=== PATIENT | female | born 1995 | race Caucasian/White ===

== ENCOUNTER 2016-09-11 20:32 | Emergency (ER) | payer OTHER ==
[2016-09-11 20:38] VITALS: BP 135/78
[2016-09-11] MEDS ORDERED: Al Hydrox/Mg Hydrox/Simet LIQ* 30 ML UDC PO ONE (20:54)
[2016-09-11] MEDS ORDERED: Ondansetron ODT TAB* 4 MG SL ONE (21:30)
[2016-09-11] MEDS ORDERED: Omeprazole CAP* 20 MG PO ONE (21:30)
[2016-09-11] MEDS ORDERED: Ondansetron TAB* 4 MG PO ONE (21:31)
[2016-09-11] MEDS ORDERED: Ondansetron ODT TAB* 4 MG ONE (21:36)
--- NOTE | 2016-09-11 21:36 | UC ---
Christiano Cobos SooYoung, scribed for Dom Estevez MD on 09/11/16 at 2049 . Abdominal Pain Female HPI - HPI Summary HPI Summary: A 20 y/o F presents to E with abd pain onset four days ago. Associated sx: nausea; frequent soft BMs but not diarrhea; intermittent hot flashes. Denies melena, dysuria, vaginal discharge, recent stress or anxiety. No abd PMHx or SHX. [facility]: 4-5 days ago. 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 - History of Current Complaint Chief Complaint: UCGI Stated Complaint: NAUSEA,STOMACH PAIN Time Seen by Provider: 09/11/16 20:41 Hx Obtained From: Patient, Family/Vat Washer Hx Last Menstrual Period: 09/07/16 Onset/Duration: Gradual Onset, Lasting Days - about 4 days ago, Still Present Timing: Constant Severity Initially: Moderate Severity Currently: Moderate Pain Intensity: 4 Pain Scale Used: 0-10 Numeric Character: Aching Aggravating Factor(s): Food Associated Signs and Symptoms: Positive: Nausea, Other: - pos: frequent soft BM ; hot flashes Allergies/Adverse Reactions: Allergies Allergy/AdvReac Type Severity Reaction Status Date / Time No Known Allergies Allergy Verified 04/28/12 06:47 Home Medications: Home Medications Calcium Carbonate (Antacid) [Tums] 500 mg PO 09/11/16 [History] Norgestimate-Ethinyl Estradiol [Trinessa 0.18/0.215/0.25 mg-35 Mcg] 1 tab PO 09/21 [History] PMH/Surg Hx/FS Hx/Imm Hx Previously Healthy: Yes Psychological History: Anxiety - Surgical History Surgical History: Yes Surgery Procedure, Year, and Place: ORAL SURGERY IN [facility] 2009 2007 - Family History Known Family History: Positive: Other Family History: neg family anaesthesia reaction - Social History Occupation: Unemployed - OTHER Lives: With Family Alcohol Use: None Substance Use Type: None Smoking Status (MU): Never Smoked Tobacco Review of Systems Constitutional: Other - hot flashes Gastrointestinal: Abdominal Pain, Nausea, Other - frequent BMs Genitourinary: Other - neg: dysuria, melena, vaginal discharge Psychological: Other - neg: stress/anxiety All Other Systems Reviewed And Are Negative: Yes Physical Exam Triage Information Reviewed: Yes Appearance: Well-Appearing, No Pain Distress Vital Signs: Initial Vital Signs Temp 98.1 F 09/11/16 20:34 Pulse 89 09/11/16 20:34 Resp 18 09/11/16 20:34 BP 135/78 09/11/16 20:34 Pulse Ox 100 09/11/16 20:34 Vital Signs Reviewed: Yes Eye Exam: Normal - EOMI, KULDIP ENT: Positive: Normal ENT inspection Neck: Positive: Supple, Nontender Respiratory: Positive: Lungs clear, Normal breath sounds Cardiovascular: Positive: RRR Abdomen Description: Positive: Soft, Other: - mild epigastric tenderness, rest of abd is nontender Bowel Sounds: Positive: Present Musculoskeletal Exam: Normal Musculoskeletal: Positive: Strength Intact Neurological Exam: Normal - A&Ox3; sensory/motor intact Psychological Exam: Normal - mood/affect appropriate Skin Exam: Normal - warm, dry, color reflects adequate perfusion Re-Evaluation - Re-Evaluation 1 Re-Evaluation Time: 21:30 Change: Worse Comment: Checking on pt, feeling worse after Maalox. Abd Pain Female Course/Dx - Course Course Of Treatment: Pt medications reviewed this visit. Pre-Hypertensive BP reading (135/78); patient referred to PCP for follow-up. - Differential Dx/Diagnosis Provider Diagnoses: EPIGASTRIC/ABDOMINAL PAIN, NAUSEA AND CHEST PAIN Discharge - Discharge Plan Condition: Stable Disposition: HOME Prescriptions: Omeprazole CAP* [Prilosec CAP* 20 MG] 20 mg PO BID #30 cap. Ondansetron ODT TAB* [Zofran 4 MG Odt TAB*] 4 mg PO Q6H PRN #10 tab.odt PRN Reason: Nausea Patient Education Materials: Chest Pain (ED), Acute Abdominal Pain (ED) Referrals: No Primary Care Phys,NOPCP [Medical Doctor] - [facility] [Outside] Additional Instructions: Your blood pressure reading today was 135/78, which is PRE-HYPERTENSIVE. Establish with a new primary care provider and follow-up within 4 weeks for blood pressure readings and further evaluation. If you can't find a provider, try to check your blood pressure on your own and see if its above 120/80. If so , follow up for further evaluation and treatment. FOLLOW UP WITH YOUR DOCTOR. GO TO THE EMERGENCY DEPARTMENT FOR ANY WORSENING OF YOUR CONDITION; PAIN, SHORTNESS OF BREATH, YOU FEEL ILL, FEVER OR QUESTIONS OR CONCERNS. The documentation as recorded by the Christiano capone SooYoung accurately reflects the service I personally performed and the decisions made by me, Dom Estevez MD.
== END 2016-09-11 21:45 | disposition home or self-care (01) ==
LOC: UCEAST 20:32
DX: R10.13 Epigastric pain (principal); R11.0 Nausea; R07.9 Chest pain, unspecified; R03.0 Elevated blood-pressure reading, without diagnosis of hypertension
CPT/HCPCS: 99213; A9270-GY; G0463

== ENCOUNTER 2017-10-29 10:13 | Emergency (ER) | payer OTHER ==
--- OUTSIDE RECORDS SUMMARY | 2017-10-29 10:19 | XMS REPORT ---
:1995 External Reference #:[id number] Author Organization [facility] Address [address] [place] [address] [place] [address] Phone [phone] Care Team Providers Name Role Phone Luisa Sargent Primary Care Physician Unavailable Payers Type Date Identification Numbers Payment Provider Subscriber Commercial Effective: Policy Number: [id number] [facility] // [facility] Network Jayme Sandeep 2014 PayID: [id number] [address] [place] [address] Problems Description No Active Problems Family History Date Family Member(s) Problem(s) Comments Father Hypercholesterolemia genetic related First Sister Asthma First Sister Seasonal Allergies Grandmother GI issues Paternal Grandfather Hypercholesterolemia Onset: (age 70 Years) Paternal Grandfather [place] Paternal Grandmother Unremarkable Maternal Grandfather Diabetes Maternal Grandfather [place] Maternal Grandmother Hypertension Social History Type Date Description Comments Lives With Younger Sister Lives With Mother And Father Smoke-Free Home is smoke-free Pets 1 dog Smoking Patient has never smoked Allergies, Adverse Reactions, Alerts Date Description Reaction Status Severity Comments 10/18/2017 Bactrim skin rash active 03/24/2010 NKDA inactive Medications Medication Date Status Form Strength Qnty SIG Indications Ordering Provider Tri-Sprintec 04/28/ Active Tablets 0.18/0.215 28tabs Take One N94.4 [place] 2014 /0.25 Tablet By Scar, mg-35 mcg Mouth D.O. Every Day Bactrim DS 10/08/ Hx Tablets 800-160mg 20tabs take 1 L03.115 Smita Mariscal 2018 - tab, po, Mario, 10/18/ bid, for C.P.N.P. 2018 10 days Clindamycin 10/06/ Hx Capsules 300mg take 1 L03.115 Smita Mariscal HCL 2017 - capsule, Mario, 10/06/ three C.P.N.P. 2018 times per day for 14 days Cephalexin 10/06/ Hx Capsules 500mg 20caps 2 capsule, L03.115 Smita Mariscal 2018 - by mouth, Mario, 10/08/ twice a C.P.N.P. 2018 day for 14 days Cephalexin 10/04/ Hx Tablets 500mg 20tabs 500 mg, L03.115 Smita Mariscal 2017 - take 1 Mario, 10/06/ tablet, C.P.N.P. 2018 po, bid for 10 days. Omeprazole 09/11/ Hx Capsules DR 20mg 1 by mouth Unknown 2016 - every day 2017 Zofran Odt 09/11/ Hx Tablets 4mg 1 by mouth Unknown 2016 - Dispers q6 hours 09/09/ as needed 2018 for nausea and vomiting Cefdinir 05/21/ Hx Capsules 300mg 20caps 1 capsule R30.0 Lennox 2016 - by mouth Sharkness 05/31/ twice , C.P.N.P 2016 daily for 10 days Diflucan 10/18/ Hx Tablets 150mg 1tabs 1 tab po B37.3 Zachary 2015 - today Shrivasta 10/20/ Carlos schultz 2015 Zithromax 07/25/ Hx Tablets 250mg 6tabs take as 461.9 Zachary Td-Callum 2012 - directed Shrivasta 08/03/ Carlos schultz 2012 No Active 07/22/ Hx Unknown Medications 2012 - 2012 Zithromax 02/11/ Hx Tablets 250mg 6tabs z callum 466.0 Zachary 2011 - Shrivasta 02/20/ Carlos schultz 2012 Proair HFA 02/11/ Hx Aerosol 108(90Base 1units 2 puffs 4 466.0 Zachary 2012 - ) mcg/ac hrly as Shrivasta 07/22/ needed Carlos schultz 2012 Prednisone 02/11/ Hx Tablets 20mg 10tabs 1 tab po 466.0 Zachary 2012 - bid pc for Shrivasta 02/20/ 5 day Carlos schultz 2011 Cefdinir 05/30/ Hx Capsules 300mg 20caps 2 po once 461.9 [place] 2011 - daily x Scar, 06/09/ 10d D.O. 2011 Fluconazole 05/30/ Hx Tablets 150mg 2tabs 1 po x 1, 461.9 [place] 2010 - july repeat Scar, 10/03/ after 72 D.O. 2011 hours Drysol 03/24/ Hx Solution 20% 45unit apply to 705.21 Luisa 2011 - s affected Arie, 10/18/ area qod - C.P.N.P. 2011 roll on Physical Hx 3Month knee pain 719.46 Luisa Therapy 2010 - s dx: 719.46 [place], 10/03/ C.P.N.P. 2010 Diflucan 02/27/ Hx Tablets 150mg 1tabs 150 mg po Lennox 2010 - once Sharkness 02/28/ , C.P.N.P 2010 Augmentin 02/21/ Hx Suspension 400-57mg/5 200uni 2 461.9 Lennox 2009 - Rec ML ts teaspoons Sharkness 03/24/ twice , C.P.N.P 2010 daily for 10 days Albuterol 03/17/ Hx Aerosol 90mcg/Dose 2units 2 puffs Zachary Inhalation 2008 - q4h prn Brianivasta 09/24/ Carlos schultz 2009 Spacer Device 03/17/ Hx 1units Use as Zachary 2008 - Directed Shrivasta 03/26/ Carlos schultz 2007 Albuterol 03/14/ Hx Syrup 2mg/5 ML 2Weeks 1 teaspoon 466.0 Zachary 2008 - po q8 hr Shrivasta 03/23/ prn Carlos schultz 2007 Prelone 03/14/ Hx Syrup 15mg/5 ML QS 2 466.0 Zachary 2007 - teaspoon Shrivasta 03/23/ po bid pc Carlos schultz 2007 for 3 days, 2 tspn q am for next 2 days Zithromax 03/14/ Hx Suspension 200mg/5 ML QS 1 03/11 466.0 Zachary 2007 - teaspoon Shrivasta 03/23/ po q day Carlos schultz 2007 for 5 days Medications Administered in Office Medication Date Status Form Strength Qnty SIG Indications Ordering Provider TB Intradermal Administered Injection Nurses [place] Test 018 Office TB Intradermal Administered Injection Nurses [place] Test 018 Office TB Intradermal Administered Injection Nurses [place] Test 017 Office TB Intradermal Administered Injection Luisa Test 017 Arie, C.P.N.P. TB Intradermal Administered Injection Nurses [place] Test 015 Office TB Noemi Test Administered Injection Zachary 999 Carlos Schroeder Immunizations CPT Code Status Date Vaccine Lot # [id number] Given 03/26/2016 Meningococcal B Recombinant Protein And Outer [id number] Membrane [Bexsero] 75971 Given 12/07/2015 Flu Inj Quadrivalent .5ml Preserve Free [id number] 40780 Given 09/06/2015 Meningococcal A,C,Y,W135 (Menactra) Preservative [id number] Free 65719 Given 09/06/2015 Meningococcal B Recombinant Protein And Outer [id number] Membrane [Bexsero] 94967 Given 06/22/2014 HPV 4 Gardasil 4 [id number] 90281 Given 02/21/2014 HPV 4 Gardasil 4 [id number] 38484 Given 12/20/2013 Flu Inj Quadrivalent .5ml Preserve Free [id number] 72831 Given 12/20/2013 HPV 4 Gardasil 4 [id number] 36268 Given 01/20/2013 Flu Inj Quadrivalent .5ml Preserve Free [id number] 61247 Given 02/04/2012 Flu Vacc Preserv Free Trivalent 3+yrs [id number] 05769 Given 01/28/2011 Flu Vacc Preserv Free Trivalent 3+yrs [id number] 42462 Given 09/24/2008 Varicella (Chicken Pox) Immunization [id number] 54856 Given 09/24/2008 TdaP Immunization Age 7+ [id number] 83339 Given 10/30/2004 MMR Virus Immunization 82601 Given 04/19/2002 DTaP Immunization under age 7 55805 Given 09/13/2001 Poliomyelitis Immunization 27271 Given 07/18/1998 Varicella (Chicken Pox) Immunization 63485 Given 07/18/1998 Hepatitis B Imm Age 0 to 19yr 76239 Given 05/23/1998 DTaP & Hib Immunization 92723 Given 01/04/1998 Poliomyelitis Immunization 34068 Given 01/04/1998 MMR Virus Immunization 40884 Given 08/21/1997 Hib/Hep B Combination Vaccine 94285 Given 08/21/1997 DTaP Immunization under age 7 32316 Given 06/27/1997 Hib Immunization 33978 Given 06/27/1997 Poliomyelitis Immunization 84445 Given 06/27/1997 DTaP Immunization under age 7 14029 Given 04/20/1997 Poliomyelitis Immunization 74119 Given 04/20/1997 DTaP Immunization under age 7 75358 Given 04/20/1997 Hib Vaccine 24594 Given 1996 Hepatitis B Imm Age 0 to 19yr 48695 Refused 10/24/2012 Hepatitis A Vaccine Pediatric/Adolescent 2 Dose Schedule 20665 Refused 10/24/2012 HPV 4 Gardasil 4 63628 Refused 10/24/2012 Meningococcal A,C,Y,W135 (Menactra) Preservative Free Vital Signs Date Vital Result Comment 10/18/2017 Weight 138.81 lb Weight in kg's 62.965 Body Temperature 97.8 F 10/08/2017 Weight 138.00 lb Weight in kg's 62.597 Body Temperature 97.7 F 10/06/2017 Weight 137.62 lb Weight in kg's 62.427 Body Temperature 98.8 F 10/04/2017 Weight 140.00 lb Weight in kg's 63.504 Body Temperature 98.2 F Heart Rate 88 /min BP Systolic 118 mmHg BP Diastolic 70 mmHg 09/09/2017 Height 62.75 inches 5'2.75" Weight 137.00 lb Weight in kg's 62.143 Heart Rate 73 /min BP Systolic 111 mmHg BP Diastolic 72 mmHg BMI (Body Mass Index) 24.5 kg/m2 09/14/2016 Weight 151.00 lb Weight in kg's 68.494 Body Temperature 98.7 F Heart Rate 70 /min BP Systolic 114 mmHg BP Diastolic 62 mmHg 08/07/2016 Height 63.5 inches 5'3.50" Weight 151.19 lb Weight in kg's 68.579 Heart Rate 79 /min BP Systolic 126 mmHg BP Diastolic 74 mmHg BMI (Body Mass Index) 26.4 kg/m2 Body Mass Index Percentile 85 % Right ear audiology results 20 db Left ear audiology results 20 db Left Visual Acuity Distance 20/20 Right Visual Acuity Distance 20/20 05/21/2016 Weight 145.00 lb Weight in kg's 65.772 Body Temperature 97.7 F 12/07/2015 Weight 137.00 lb Weight in kg's 62.143 Weight Percentile 68th Body Temperature 98.2 F 10/19/2015 Weight 138.00 lb Weight in kg's 62.597 Weight Percentile 70th Body Temperature 98.4 F 09/06/2015 Height 63.5 inches 5'3.50" Height Percentile 38 % Weight 137.00 lb Weight in kg's 62.143 Weight Percentile 69th Heart Rate 70 /min BP Systolic 123 mmHg BP Diastolic 72 mmHg Blood Pressure Percentile 88 % BMI (Body Mass Index) 23.9 kg/m2 Body Mass Index Percentile 74 % Right ear audiology results 20 db Left ear audiology results 20 db Left Visual Acuity Distance 20/20 Right Visual Acuity Distance 20/20 07/26/2015 Weight 142.00 lb Weight in kg's 64.411 Weight Percentile 76th Body Temperature 97.8 F 03/22/2015 Weight 146.00 lb Weight in kg's 66.226 Weight Percentile 81st Body Temperature 98.1 F Heart Rate 83 /min Blood Pressure Percentile 0 % BP Systolic Sitting 122 mmHg (L) 130/62 (R) BP Diastolic Sitting 62 mmHg (L) 130/62 (R) 09/13/2014 Height 63.25 inches 5'3.25" Height Percentile 36 % Weight 138.00 lb Weight in kg's 62.597 Weight Percentile 74th Heart Rate 86 /min BP Systolic 125 mmHg BP Diastolic 75 mmHg Blood Pressure Percentile 91 % BMI (Body Mass Index) 24.3 kg/m2 Body Mass Index Percentile 79 % 09/22/2013 Height 63 inches 5'3" Height Percentile 33 % Weight 131.25 lb Weight in kg's 59.535 Weight Percentile 68th Heart Rate 70 /min BP Systolic 120 mmHg BP Diastolic 67 mmHg Blood Pressure Percentile 80 % BMI (Body Mass Index) 23.2 kg/m2 Body Mass Index Percentile 75 % 04/28/2013 Height 63.25 inches 5'3.25" Height Percentile 37 % Weight 141.12 lb Weight in kg's 64.014 Weight Percentile 80th Heart Rate 70 /min BP Systolic 123 mmHg BP Diastolic 70 mmHg Blood Pressure Percentile 87 % BMI (Body Mass Index) 24.8 kg/m2 Body Mass Index Percentile 84 % 10/24/2012 Height 63.25 inches 5'3.25" Height Percentile 39 % Weight 140.00 lb Weight in kg's 63.504 Weight Percentile 81st Heart Rate 64 /min BP Systolic 110 mmHg BP Diastolic 64 mmHg Blood Pressure Percentile 47 % BMI (Body Mass Index) 24.6 kg/m2 Body Mass Index Percentile 85 % 07/25/2012 Weight 132.00 lb Weight in kg's 59.875 Weight Percentile 73rd Body Temperature 98.9 F Heart Rate 72 /min 02/18/2012 Weight 125.00 lb Weight in kg's 56.700 Weight Percentile 66th Body Temperature 98.2 F BP Systolic 124 mmHg BP Diastolic 62 mmHg Blood Pressure Percentile 0 % 02/12/2012 Weight 125.00 lb Weight in kg's 56.700 Weight Percentile 66th Body Temperature 97.9 F Blood Pressure Percentile 0 % 02/04/2012 Weight 126.50 lb Weight in kg's 57.380 Weight Percentile 69th Body Temperature 98.6 F Blood Pressure Percentile 0 % 10/19/2011 Height 63.25 inches 5'3.25" Height Percentile 44 % Weight 124.00 lb Weight in kg's 56.246 Weight Percentile 67th Heart Rate 72 /min BP Systolic 124 mmHg BP Diastolic 66 mmHg Blood Pressure Percentile 90 % BMI (Body Mass Index) 21.8 kg/m2 Body Mass Index Percentile 72 % 09/17/2011 Weight 134.00 lb Weight in kg's 60.782 Weight Percentile 80th Body Temperature 98.4 F Blood Pressure Percentile 0 % 10/03/2010 Height 62.75 inches 5'2.75" Height Percentile 48 % Weight 119.50 lb Weight in kg's 54.205 Weight Percentile 70th Heart Rate 68 /min BP Systolic 110 mmHg BP Diastolic 50 mmHg Blood Pressure Percentile 54 % BMI (Body Mass Index) 21.3 kg/m2 Body Mass Index Percentile 73 % 05/30/2010 Weight 110.00 lb Weight in kg's 49.896 Weight Percentile 60th Body Temperature 97.6 F Blood Pressure Percentile 0 % 05/19/2010 Weight 117.00 lb Weight in kg's 53.071 Weight Percentile 71st Body Temperature 97.8 F Blood Pressure Percentile 0 % 03/24/2010 Weight 118.00 lb Weight in kg's 53.525 Weight Percentile 74th Body Temperature 98.4 F Blood Pressure Percentile 0 % 02/21/2010 Weight 116.00 lb Weight in kg's 52.618 Weight Percentile 73rd Body Temperature 98.0 F Blood Pressure Percentile 0 % 10/01/2009 Height 61.5 inches 5'1.50" Height Percentile 52 % Weight 108.00 lb Weight in kg's 48.989 Weight Percentile 67th Heart Rate 72 /min BP Systolic 100 mmHg BP Diastolic 58 mmHg Blood Pressure Percentile 24 % BMI (Body Mass Index) 20.1 kg/m2 Body Mass Index Percentile 68 % 09/24/2008 Height 59.75 inches 4'11.75" Height Percentile 64 % Weight 102.00 lb Weight in kg's 46.267 Weight Percentile 75th Heart Rate 80 /min BP Systolic 100 mmHg BP Diastolic 60 mmHg Blood Pressure Percentile 27 % BMI (Body Mass Index) 20.1 kg/m2 Body Mass Index Percentile 78 % 10/31/2007 Height 56.75 inches 4'8.75" Height Percentile 57 % Weight 90.00 lb Weight in kg's 40.824 Weight Percentile 71st Heart Rate 80 /min BP Systolic 104 mmHg BP Diastolic 58 mmHg BMI (Body Mass Index) 19.6 kg/m2 Body Mass Index Percentile 81 % 07/28/2007 Weight 90.00 lb Weight in kg's 40.824 Weight Percentile 77th Body Temperature 97.8 F 05/23/2007 Weight 94.00 lb Weight in kg's 42.638 Weight Percentile 85th Body Temperature 97.2 F 03/16/2007 Weight 87.00 lb Weight in kg's 39.463 Weight Percentile 79th Body Temperature 95.7 F 03/14/2007 Weight 87.00 lb Weight in kg's 39.463 Weight Percentile 79th Body Temperature 96.8 F 09/02/2006 Height 53.5 inches 4'5.50" Height Percentile 48 % Weight 80.00 lb Weight in kg's 36.288 Weight Percentile 77th Heart Rate 72 /min BP Systolic 98 mmHg BP Diastolic 74 mmHg BMI (Body Mass Index) 19.6 kg/m2 Body Mass Index Percentile 89 % 10/30/2004 Height 48.5 inches 4'0.50" Height Percentile 29 % Weight 59.00 lb Weight in kg's 26.762 Weight Percentile 65th BMI (Body Mass Index) 17.6 kg/m2 Body Mass Index Percentile 84 % 10/01/2003 Height 46 inches 3'10" Height Percentile 31 % Weight 50.00 lb Weight in kg's 22.680 Weight Percentile 57th BMI (Body Mass Index) 16.6 kg/m2 Body Mass Index Percentile 77 % Results Test Date Test Result H/L Range Note CBC Auto Diff 09/16/2017 White Blood Count 5.9 10^3/uL 3.5-10.8 Red Blood Count 5.02 10^6/uL 4.00-5.40 Hemoglobin 14.2 g/dL 12.0-16.0 Hematocrit 42 % 35-47 Mean Corpuscular Volume 84 fL 80-97 Mean Corpuscular Hemoglobin 28 pg 27-31 Mean Corpuscular HGB Conc 34 g/dL 31-36 Red Cell Distribution Width 14 % 10.5-15 Platelet Count 231 10^3/uL 150-450 Mean Platelet Volume 9.5 um3 7.4-10.4 Abs Neutrophils 3.1 10^3/uL 1.5-7.7 Abs Lymphocytes 2.2 10^3/uL 1.0-4.8 Abs Monocytes 0.5 10^3/uL 0-0.8 Abs Eosinophils 0.1 10^3/uL 0-0.6 Abs Basophils 0.1 10^3/uL 0-0.2 Abs Nucleated RBC 0 10^3/uL Granulocyte % 52.8 % 38-83 Lymphocyte % 36.9 % 25-47 Monocyte % 8.0 % High 0-7 Eosinophil % 1.0 % 0-6 Basophil % 1.3 % 0-2 Nucleated Red Blood Cells % 0 Comp Metabolic Panel 09/16/2017 Sodium 139 mmol/L 135-145 Potassium 4.3 mmol/L 3.5-5.0 Chloride 105 mmol/L 101-111 Co2 Carbon Dioxide 26 mmol/L 22-32 Anion Gap 8 mmol/L 2-11 Glucose 87 mg/dL 70-100 Blood Urea Nitrogen 11 mg/dL 6-24 Creatinine 0.80 mg/dL 0.51-0.95 BUN/Creatinine Ratio 13.8 8-20 Calcium 9.5 mg/dL 8.6-10.3 Total Protein 6.9 g/dL 6.4-8.9 Albumin 4.2 g/dL 3.2-5.2 Globulin 2.7 g/dL 2-4 Albumin/Globulin Ratio 1.6 1-3 Total Bilirubin 0.40 mg/dL 0.2-1.0 Alkaline Phosphatase 55 U/L 34-104 Alt 11 U/L 7-52 Ast 13 U/L 13-39 Egfr Non- 91.4 >60 Egfr 110.7 >60 1 Laboratory test finding 09/16/2017 TSH (Thyroid Stim Horm) 3.33 mcIU/mL 0.34-5.60 2 Lipid Profile 09/16/2017 Triglycerides 151 mg/dL 3 (Trig/Chol/HDL) Cholesterol 216 mg/dL 4 HDL Cholesterol 62.9 mg/dL 5 LDL Cholesterol 123 mg/dL 6 GC/Chlamydia Amplified Rna 09/09/2017 Chlamydia trachomatis Rna Negative Negative Neisseria gonorrhoeae (GC) Rna Negative Negative Laboratory test finding 09/14/2016 Helico Pylori Antigen- Negative Negative 7, 8 Stool Stool Culture SEE RESULT BELOW 7, 9 Stool For Blood SEE RESULT BELOW 7, 10 Laboratory test finding 08/07/2016 .Hemoglobin in house 14.5 GC/Chlamydia Amplified 08/07/2016 Chlamydia trachomatis Rna Negative Negative 11 Rna Neisseria gonorrhoeae (GC) Rna Negative Negative 11 Laboratory test 05/22/2016 Urine Culture And SEE RESULT BELOW 12 finding Sensitivities Laboratory test 05/21/2016 .Urine Culture In House >100k positive finding Laboratory test 09/06/2015 .Hemoglobin in house 14.8 finding Laboratory test 09/13/2014 Hemoglobin 14.2 finding GC/Chlamydia 09/13/2014 Chlamydia trachomatis Negative Negative Amplified Rna Rna Neisseria gonorrhoeae (GC) Rna Negative Negative 13 Laboratory test finding 09/22/2013 .Hemoglobin in house 13.8 Laboratory test finding 07/25/2012 .Throat Culture Overnight neg .Throat Culture Quick Strep neg Laboratory test finding 04/28/2012 Urine Negative Negative 14 Laboratory test finding 10/19/2011 Hemoglobin 13.4 Laboratory test finding 10/03/2010 Hemoglobin 13.4 Laboratory test finding 05/19/2010 .Throat Culture Overnight neg .Throat Culture Quick Strep NEG Laboratory test finding 10/01/2009 .Hemoglobin in house 12.4 Laboratory test finding 09/24/2008 Hemoglobin 13.8 Laboratory test finding 07/28/2007 Throat Culture Quick Strep NEG Throat Culture (Overnight) neg per [facility] Laboratory test finding 05/24/2007 .Throat Culture Overnight neg .Throat Culture Quick Strep neg Laboratory test finding 09/02/2006 Hemoglobin 14.5 1 Because ethnic data is not always readily available, this report includes an eGFR for both -Americans and non- Americans. The National Kidney Disease Education Program (NKDEP) does not endorse the use of the MDRD equation for patients that are not between the ages of 18 and 70, are , have extremes of body size, muscle mass, or nutritional status, or are non- or non-. According to the National Kidney Foundation, irrespective of diagnosis, the stage of the disease is based on the level of kidney function: Stage Description GFR(mL/min/1.73 m(2)) 1 Kidney damage with normal or decreased GFR 90 2 Kidney damage with mild decrease in GFR 60-89 3 Moderate decrease in GFR 30-59 4 Severe decrease in GFR 15-29 5 Kidney failure <15 (or dialysis) 2 FASTING 3 Desirable: <150 Borderline High: 150-199 High: 200-499 Very High: >500 4 Desirable: <200 Borderline High: 200-239 High: >239 5 Low: <40 Desirable: 40-60 High: >60 6 Desirable: <100 Near Optimal: 100-129 Borderline High: 130-159 High: 160-189 Very High: >189 7 [id number] Test Performed by: [address] [id number] 9 SEE RESULT BELOW Name: LISA CARRASQUILLO : [address]: Lennox Tinoco [employer]DER Acct: [id number] Unit: [id number] AGE: 20 Location: [facility] Re09/14/16 SEX: F Status: REG REF SPEC: [id number] TYLER: 09/14/16-[address]: Lennox Tinoco [employer]DER REQ: [id number] RECD: 09/14/16 STATUS: RES _ SOURCE: STOOL SPDESC: ORDERED: Occult Bl, Diag, Stool Culture, Fecal Lactoferr, O P: Ez/Benton COMMENTS: [id number] Procedure Result Reported Site Stool Culture PENDING Stool Specimen Description Final 09/14/16- 1922 ML Stool Color Brown Stool Form Formed Stool Consistency Hard Shiga Toxin 1 2 PENDING Fecal Lactoferrin (Stool WBC) Final 09/14/16- 1922 ML Fecal Lactoferrin Negative by Immunoassay TEST LIMITATIONS: Assay detects elevated levels of lactoferrin released from fecal leukocytes as a marker of intestinal inflammation. The test may not be appropriate in immunocompromised persons. Fecal samples from breast fed infants should not be used with this assay. Stool Occult Blood (1) PENDING O P: Giardia/Cryptospor Screen PENDING * ML - MAIN LAB ([facility]) . END OF REPORT * ML=Testing performed at Main Lab DEPARTMENT OF PATHOLOGY, [address] [place] [address] Juliano Kinsey M.D. Director [facility] # [id number] 10 SEE RESULT BELOW Name: LISA CARRASQUILLO : [address]: Lennox Tinoco NP Acct: [id number] Unit: [id number] AGE: 20 Location: [facility] Re09/14/16 SEX: F Status: REG REF SPEC: [id number] TYLER: 09/14/16-1045 [facility] DR: Lennox Tinoco NP REQ: [id number] RECD: 09/14/16 STATUS: COMP _ SOURCE: STOOL SPDESC: ORDERED: Occult Bl, Diag, Stool Culture, Fecal Lactoferr, O P: Ez/Benton COMMENTS: [id number] Procedure Result Reported Site Stool Culture Final 09/16/16- 1424 ML Result No enteric pathogens isolated Testing for Salmonella, Shigella, Aeromonas, Plesiomonas, Yersinia and Campylobacter are included in a Stool Culture. Vibrio spp not routinely tested for in a stool culture. If testing is desired, please request specifically when placing test order. Sensitivities not routinely performed on stool isolates, as antibiotics may prolong the carriage rate of bacteria. Please contact the microbiology lab if sensitivities are required. Stool Specimen Description Final 09/14/16- 1923 ML Stool Color Brown Stool Form Formed Stool Consistency Hard Shiga Toxin 1 2 Final 09/15/16- 1045 ML Organism 1 Negative Shiga Toxin 1 2 CONTINUED ON NEXT PAGE * ML=Testing performed at Main Lab DEPARTMENT OF PATHOLOGY, [address] [place] [address] Juliano Kinsey M.D. Director [facility] # [id number] Patient: ILSA CARRASQUILLO [id number] (Continued) Specimen: [id number] Collected: 09/14/16 Received: 09/14/16 (Continued) Procedure Result Reported Site Shiga Toxin 1 2 Final (continued) 09/15/16- 1044 Immunochromatographic Assay Fecal Lactoferrin (Stool WBC) Final 09/14/16- 1923 ML Fecal Lactoferrin Negative by Immunoassay TEST LIMITATIONS: Assay detects elevated levels of lactoferrin released from fecal leukocytes as a marker of intestinal inflammation. The test may not be appropriate in immunocompromised persons. Fecal samples from breast fed infants should not be used with this assay. Stool Occult Blood (1) Final 09/15/16- 0806 ML Stool Occult Blood Negative O P: Giardia/Cryptospor Screen Final 09/15/16- 1046 ML Organism 1 Neg Cryptosporidium/Giardia Giardia and cryptosporidium antigen testing performed by enzyme immunoassay. If patient is immunocompromised or has traveled to or is from a developing country, a full ova and parasite exam with microscopic (OPMIC) is recommended. All samples will be held one month in case full ova and parasite testing is requested. Contact the Microbiology Department at [phone]. TEST LIMITATIONS: As with all diagnostic procedures, the results obtained should be used in conjunction with other clinical information available the physician, including confirmation by another method. Negative results can occur in samples containing antigen below lower limits of detection of the assay. One negative specimen does not rule out the possibility of a parasitic infection. To improve detection CONTINUED ON NEXT PAGE * ML=Testing performed at Main Lab DEPARTMENT OF PATHOLOGY, [address] [place] [address] Juliano Kinsey M.D. Director [facility] # [id number] Patient: LISA CARRASQUILLO [id number] (Continued) Specimen: [id number] Collected: 09/14/16-1044 Received: 09/14/16-1618 (Continued) Procedure Result Reported Site O P: Giardia/Cryptospor Screen Final (continued) 09/15/16- 1045 it is recommended that three specimens be collected on separate days over a period of not more than seven days. The use of colonic washes, aspirates or other diluted sample types has not been established and could affect the performance of the assay. Stool samples contaminated with an oily or particulate base (eg. Barium, mineral oil etc.) could interfere with the test and are not recommended. * ML - MAIN LAB ([facility]) . END OF REPORT * ML=Testing performed at Main Lab DEPARTMENT OF PATHOLOGY, [address] [place] [address] Juliano Kinsey M.D. Director [facility] # [id number] 11 [id number] 12 SEE RESULT BELOW Name: LISA CARRASQUILLO : [address]: Lennox Tinoco NP Acct: [id number] Unit: [id number] AGE: 20 Location: [facility] Re05/22/16 SEX: F Status: REG REF SPEC: [id number] TYLER: 05/22/16-755 [facility] DR: Lennox Tinoco NP REQ: [id number] RECD: 05/22/16 STATUS: COMP _ SOURCE: URINE SPDESC: ORDERED: Urine Culture COMMENTS: [id number] Urine Source: Random Procedure Result Reported Site Urine Culture Final 05/24/16- 0909 ML Organism 1 ESCHERICHIA COLI [place] Count >100,000 (Many) CFU/ML 1. ESCHERICHIA COLI [facility].I[facility]. RX --------- ------ Ampicillin >=32 R Cefazolin 16 I Cefepime <=1 S Ceftriaxone <=1 S Ciprofloxacin <=0.25 S Gentamicin <=1 S Levofloxacin <=0.12 S Meropenem <=0.25 S Nitrofurantoin <=16 S Tetracycline <=1 S Pipercillin/Tazobactam <=4 S Trimethoprim/Sulfamethoxazole <=20 S Amoxicillin/Clavulanic Acid 16 I Aztreonam <=1 S Contact the Microbiology Department for any additional antibiotic reporting. * ML - MAIN LAB ([facility]) . END OF REPORT * ML=Testing performed at Main Lab DEPARTMENT OF PATHOLOGY, [address] [place] [address] Juliano Kinsey M.D. Director [facility] # [id number] 13 Female urine specimens have been self-validated by [facility] and have been granted conditional assay approval by [facility]. 14 If is still suspected, please repeat test after 48 to 72 hours. This test detects intact HCG only and is indicated for the early detection of . Procedures Date CPT Code Description Status 10/06/2017 93778 I & D Abscess Simple Completed 10/31/2007 08462 Wart Treatment 1-14 warts Global Period 10 Days Completed Encounters Type Date Location Provider CPT E/M Dx Office Visit 10/08/2017 11:00a East Office Ken OcampoP.N.P. 39505 L03.115 Office Visit 10/06/2017 3:30p Main Office Ken OcampoP.N.P. 36677 L03.116 Office Visit 10/04/2017 4:15p Main Office eKn OcampoP.N.P. 43081 L03.116 Office Visit 09/09/2017 3:15p East Office Ken DeanP.N.P 24728 Z00.00 Office Visit 09/07/2017 10:00a East Office Nurses East Office 13459 Z11.1 Office Visit 09/01/2017 10:00a East Office Nurses East Office 81733 Z11.1 Office Visit 09/14/2016 9:15a East Office Ken DeanP.N.P 02422 R10.13 Office Visit 08/18/2016 10:15a East Office Nurses East Office 64145 Z11.1 Office Visit 08/07/2016 10:00a Main Office Luisa Sargent C.P.N.P. 88173 Z00.8 Z13.89 Office Visit 05/21/2016 4:30p East Office Lennox Tinoco C.P.N.P 66582 R30.0 Office Visit 12/07/2015 10:30a East Office Kush Pollard M.D. 13291 R59.0 Z23 R59.0 Office Visit 10/19/2015 10:00a Main Office Zachary Schroeder M.D. 47421 B37.3 Office Visit 09/06/2015 8:45a Main Office Luisa Sargent C.P.N.P. 14545 Z00.00 Z13.89 Office Visit 07/26/2015 4:15p Main Office Luisa Sargent C.P.N.P. 76899 R21 Office Visit 03/22/2015 4:00p Main Office Luisa Sargent C.P.N.P. 26384 I95.1 Office Visit 09/13/2014 10:00a East Office Lennox Tinoco C.P.N.P 81740 V20.2 625.3 Office Visit 09/22/2013 2:15p Main Office Luisa Sargent C.P.N.P. 33330 V20.2 625.3 Office Visit 04/28/2013 9:00a Main Office Luisa Sargent C.P.N.P. 00636 625.3 Office Visit 10/24/2012 2:15p Main Office Luisa Sargent C.P.N.P. 97315 V20.2 Office Visit 07/25/2012 5:00p East Office Zachary Schroeder M.D. 92102 461.9 Office Visit 02/18/2012 4:45p Main Office Zachary Schroeder M.D. 40256 466.0 780.79 Office Visit 02/12/2012 5:00p East Office Zachary Schroeder M.D. 42697 466.0 Office Visit 02/04/2012 4:30p East Office Cody Chisholm III, M.D. 47589 465.9 Office Visit 10/19/2011 9:45a Main Office Luisa Sargent C.P.N.P. 69346 V20.2 959.7 623.8 Office Visit 09/17/2011 11:45a East Office Cody Chisholm III, M.D. 48024 959.7 Office Visit 10/03/2010 10:15a Main Office Ken GarnerP.N.P. 66752 V20.2 626.4 Office Visit 05/30/2010 4:15p East Office Paris Abbott D.O. 38786 461.9 Office Visit 05/19/2010 4:45p Main Office Ken GranerP.N.P. 65056 487.1 Office Visit 03/24/2010 2:00p Main Office Ken GarnerP.N.P. 59584 705.21 719.46 Office Visit 02/21/2010 8:30a East Office Ken DeanP.N.P 36867 461.9 Office Visit 10/01/2009 2:15p Main Office Luisa Sargent C.P.N.P. 38595 V20.2 300.00 Office Visit 09/24/2008 11:00a East Office Daria Boss 19743 V20.2 625.3 300.00 Office Visit 10/31/2007 10:15a East Office Daria Boss 79042 V20.2 300.00 078.10 Office Visit 07/28/2007 1:45p East Office Cody Chisholm III, M.D. 39676 462 Office Visit 05/23/2007 4:30p East Office Daria Boss 69675 462 Office Visit 03/16/2007 1:00p East Office Zachary Schroeder M.D. 11405 466.0 Office Visit 03/14/2007 10:30a East Office Zachary Schroeder M.D. 50014 466.0 Office Visit 09/02/2006 11:00a East Office Hilton Boss.P.A.C. 98147 V20.2 300.00 Office Visit 02/24/2005 4:15p East Office Kush Pollard M.D. 44182 788.41 Office Visit 12/26/2004 3:45p East Office Yesica Ramirez R.P.A.C. 45791 599.0 V67.59 Office Visit 11/14/2004 4:00p East Office Yesica Ramirez R.P.A.C. 40054 788.1 V67.59 Office Visit 10/30/2004 12:30p East Office Hilton Boss.P.A.C. 35764 V20.2 V05.8 Office Visit 10/01/2003 10:00a East Office Yesica Ramirez R.P.A.C. 77755 V20.2 Office Visit 02/24/2002 9:30a East Office Yesica Ramirez R.P.A.C. 07088 382.9 Office Visit 02/09/2002 10:15a East Office Yesica Ramirez R.P.A.C. 95369 V20.2 382.9 599.0 V67.59 Office Visit 04/20/2001 2:15p East Office Rk Garner.P.N.P. 07870 Office Visit 10/29/2000 9:30a East Office Yesica Ramirez R.P.A.C. 51261 Plan of Care 10/18/2017 - Smita Martin C.P.N.P.L03.115 Cellulitis of right lower limbFollow up:PRN for new or worsening symptoms, and for routine well child check ups. She will be due for next [facility] at age 22 of next year and she knows to start thinking about transitioning to adult care and establishing a new PCP.L27.0 Gen skin eruption due to drugs and meds taken internallyComments: Evaluation of skin rash, discussed with patient to D/C Bactrim, appears to be related as she cannot identify any thing new in terms of foods, soaps or detergents that may have caused this to occur.Medicaiton allergy updated to Bactrim.Patient may take benadryl 25mg, take 1-2 tablet, po, qd PRN just asshe has when first noticed skin rash.She will continue to monitor, and if worseing then will call and RTO.
--- OUTSIDE RECORDS SUMMARY | 2017-10-29 10:19 | XMS REPORT ---
:1995 External Reference #:[id number] Author Organization [facility] Address [address] [place] [address] [place] [address] Phone [phone] Care Team Providers Name Role Phone Luisa Sargent Primary Care Physician Unavailable Payers Type Date Identification Numbers Payment Provider Subscriber Commercial Effective: Policy Number: [id number] [facility] // [facility] Network Jayme Sandeep 2014 PayID: [id number] [address] [place] [address] Problems Description No Active Problems Family History Date Family Member(s) Problem(s) Comments Father Hypercholesterolemia genetic related First Sister Asthma First Sister Seasonal Allergies Grandmother GI issues Paternal Grandfather Hypercholesterolemia Onset: (age 70 Years) Paternal Grandfather [place] Paternal Grandmother Unremarkable Maternal Grandfather Diabetes Maternal Grandfather [place] Maternal Grandmother Hypertension Social History Type Date Description Comments Lives With Younger Sister Lives With Mother And Father Smoke-Free Home is smoke-free Pets 1 dog Smoking Patient has never smoked Allergies, Adverse Reactions, Alerts Date Description Reaction Status Severity Comments 03/24/2010 NKDA active Medications Medication Date Status Form Strength Qnty SIG Indications Ordering Provider Bactrim DS 10/08/ Active Tablets 800-160mg 20tabs take 1 L03.115 Smita M. 2018 tab, po, Mario, bid, for C.P.N.P. 10 days Tri-Sprintec 04/28/ Active Tablets 0.18/0.215 28tabs Take One N94.4 Paris 2014 /0.25 Tablet By Scar, mg-35 mcg Mouth D.O. Every Day Clindamycin 10/06/ Hx Capsules 300mg take 1 L03.115 Smita M. HCL 2017 - capsule, Mario, 10/06/ three C.P.N.P. 2018 times per day for 14 days Cephalexin 10/06/ Hx Capsules 500mg 20caps 2 capsule, L03.115 Smita M. 2017 - by mouth, Mario, 10/08/ twice a C.P.N.P. 2018 day for 14 days Cephalexin 10/04/ Hx Tablets 500mg 20tabs 500 mg, L03.115 Smita M. 2017 - take 1 Mario, 10/06/ tablet, C.P.N.P. 2018 po, bid for 10 days. Omeprazole 09/11/ Hx Capsules DR 20mg 1 by mouth Unknown 2016 - every day 2017 Zofran Odt 09/11/ Hx Tablets 4mg 1 by mouth Unknown 2016 - Dispers q6 hours 09/09/ as needed 2017 for nausea and vomiting Cefdinir 05/21/ Hx Capsules 300mg 20caps 1 capsule R30.0 Lennox 2016 - by mouth Sharkness 05/31/ twice , C.P.N.P 2016 daily for 10 days Diflucan 10/18/ Hx Tablets 150mg 1tabs 1 tab po B37.3 Zachary 2015 - today Shrivastjonah 10/20/ Carlos schultz 2015 Zithromax 07/25/ Hx Tablets 250mg 6tabs take as 461.9 Zachary Z-Callum 2012 - directed Brianivastjonah 08/03/ Carlos schultz 2012 No Active 07/22/ Hx Unknown Medications 2012 - 2012 Zithromax 02/11/ Hx Tablets 250mg 6tabs z callum 466.0 Zachary 2011 - Shrivasta 02/20/ Carlos schultz 2011 Proair HFA 02/11/ Hx Aerosol 108(90Base 1units [...] - daily x Scar, 06/09/ 10d D.O. 2010 Fluconazole 05/30/ Hx Tablets 150mg 2tabs 1 po x 1, 461.9 Paris 2010 - july repeat Scar, 10/03/ after 72 D.O. 2011 hours Drysol 03/24/ Hx Solution 20% 45unit apply to 705.21 Luisa 2010 - s affected Arie, 10/18/ area qod - C.P.N.P. 2011 roll on Physical 03/24/ Hx 3Month knee pain 719.46 Luisa Therapy 2010 - s dx: 719.46 Arie, 10/03/ C.P.N.P. 2010 Diflucan 02/27/ Hx Tablets 150mg 1tabs 150 mg po Lennox 2009 - once Sharkness 02/28/ , C.P.N.P 2010 Augmentin 02/21/ Hx Suspension 400-57mg/5 200uni 2 461.9 Lennox 2009 - Rec ML ts teaspoons Sharkness 03/24/ twice , C.P.N.P 2010 daily for 10 days Albuterol 03/17/ Hx Aerosol 90mcg/Dose 2units 2 puffs Zachary Inhalation 2008 - q4h prn Shrivasta 09/24/ Carlos schultz 2009 Spacer Device 03/17/ Hx 1units Use as Zachary 2008 - Directed Shrivasta 03/26/ Carlos schultz 2007 Albuterol 03/14/ Hx Syrup 2mg/5 ML 2Weeks 1 teaspoon 466.0 Zachary 2008 - po q8 hr Shrivasta 03/23/ prn Carlos schultz 2007 Prelone 03/14/ Hx Syrup 15mg/5 ML QS 2 466.0 Zachary 2008 - teaspoon Shrivasta 03/23/ po bid pc Carlos schultz 2007 for 3 days, 2 tspn q am for next 2 days Zithromax 03/14/ Hx Suspension 200mg/5 ML QS 1 03/11 466.0 Zachary 2008 - teaspoon Shrivasta 03/23/ po q day Carlos schultz 2007 for 5 days Medications Administered in Office Medication Date Status Form Strength Qnty SIG Indications Ordering Provider TB Intradermal Administered Injection Nurses East Test 018 Office TB Intradermal Administered Injection Nurses East Test 018 Office TB Intradermal Administered Injection Nurses East Test 017 Office TB Intradermal Administered Injection Luisa Test 017 Arie C.P.N.P. TB Intradermal Administered Injection Nurses East Test 015 Office TB Noemi Test Administered Injection Zachary 999 Carlos Schroeder Immunizations CPT Code Status Date Vaccine Lot # 22971 Given 03/26/2016 Meningococcal B Recombinant Protein And Outer [id number] Membrane [Bexsero] 62521 Given 12/07/2015 Flu Inj Quadrivalent .5ml Preserve Free [id number] 61208 Given 09/06/2015 Meningococcal A,C,Y,W135 (Menactra) Preservative [id number] Free 73294 Given 09/06/2015 Meningococcal B Recombinant Protein And Outer 604359 Membrane [Bexsero] 82878 Given 06/22/2014 HPV 4 Gardasil 4 [id number] 49105 Given 02/21/2014 HPV 4 Gardasil 4 [id number] 27252 Given 12/20/2013 Flu Inj Quadrivalent .5ml Preserve Free [id number] 52497 Given 12/20/2013 HPV 4 Gardasil 4 [id number] 71842 Given 01/20/2013 Flu Inj Quadrivalent .5ml Preserve Free [id number] 43568 Given 02/04/2012 Flu Vacc Preserv Free Trivalent 3+yrs [id number] 38585 Given 01/28/2011 Flu Vacc Preserv Free Trivalent 3+yrs [id number] 83407 Given 09/24/2008 Varicella (Chicken Pox) Immunization 0355y 56920 Given 09/24/2008 TdaP Immunization Age 7+ [id number] 23229 Given 10/30/2004 MMR Virus Immunization 92870 Given 04/19/2002 DTaP Immunization under age 7 14595 Given 09/13/2001 Poliomyelitis Immunization 06613 Given 07/18/1998 Varicella (Chicken Pox) Immunization 19516 Given 07/18/1998 Hepatitis B Imm Age 0 to 19yr 83081 Given 05/23/1998 DTaP & Hib Immunization 60374 Given 01/04/1998 Poliomyelitis Immunization 39236 Given 01/04/1998 MMR Virus Immunization 34987 Given 08/21/1997 Hib/Hep B Combination Vaccine 45311 Given 08/21/1997 DTaP Immunization under age 7 07796 Given 06/27/1997 Hib Immunization 28131 Given 06/27/1997 Poliomyelitis Immunization 73373 Given 06/27/1997 DTaP Immunization under age 7 84801 Given 04/20/1997 Poliomyelitis Immunization 39109 Given 04/20/1997 DTaP Immunization under age 7 11669 Given 04/20/1997 Hib Vaccine 89689 Given 1996 Hepatitis B Imm Age 0 to 19yr 13973 Refused 10/24/2012 Hepatitis A Vaccine Pediatric/Adolescent 2 Dose Schedule 79244 Refused 10/24/2012 HPV 4 Gardasil 4 90825 Refused 10/24/2012 Meningococcal A,C,Y,W135 (Menactra) Preservative Free Vital Signs Date Vital Result Comment 10/08/2017 Weight 138.00 lb Weight in kg's [...] Strep NEG Throat Culture (Overnight) neg per [facility] test finding 05/24/2007 .Throat Culture Overnight [...] 130-159 High: 160-189 Very High: >189 7 [id number] Test Performed by: [address] [address] 9 SEE RESULT BELOW Name: LISA CARRASQUILLO : [address]: Lennox Tinoco INTERNATIONAL MARKETING COORDINATOR Acct: [id number] Unit: [id number] AGE: 20 Location: [facility] Re09/14/16 SEX: F Status: REG REF SPEC: [id number] TYLER: 09/14/[address]: Lennox Tinoco NP REQ: [id number] RECD: 09/14/16 STATUS: RES _ SOURCE: STOOL SPDESC: ORDERED: Occult Bl, Diag, Stool Culture, Fecal Lactoferr, O P: Faithar/Benton COMMENTS: [id number] Procedure Result Reported Site Stool Culture PENDING [...] Screen PENDING * ML - MAIN LAB ([facility]) . END OF REPORT * ML=Testing performed at Main Lab DEPARTMENT OF PATHOLOGY, [address] [place] [address] Juliano Kinsey M.D. Director [facility] # [id number] 10 SEE RESULT BELOW Name: LISA CARRASQUILLO : [address]: Lennox Tinoco INTERNATIONAL MARKETING COORDINATOR Acct: [id number] Unit: [id number] AGE: 20 Location: [facility] Re09/14/16 SEX: F Status: REG REF SPEC: [id number] TYLER: 09/14/16-[address]: Lennox Tinoco INTERNATIONAL MARKETING COORDINATOR REQ: [id number] RECD: 09/14/16 STATUS: COMP _ SOURCE: STOOL SPDESC: ORDERED: Occult Bl, Diag, Stool Culture, Fecal Lactoferr, O P: Giar/Crypt COMMENTS: [id number] Procedure Result Reported Site Stool Culture Final [...] performed at Main Lab DEPARTMENT OF PATHOLOGY, [address] [place] [address] Juliano Kinsey M.D. Director [facility] # [id number] Patient: LISA CARRASQUILLO [id number] (Continued) Specimen: [id number] Collected: 09/14/16 Received: 09/14/16 (Continued) Procedure Result [...] is requested. Contact the Microbiology Department at [phone]. TEST LIMITATIONS: As with all diagnostic procedures, [...] performed at Main Lab DEPARTMENT OF PATHOLOGY, [address] [place] [address] Juliano Kinsey M.D. Director [facility] # [id number] Patient: LISA CARRASQUILLO [id number] (Continued) Specimen: [id number] Collected: 09/14/16 Received: 09/14/16-1618 (Continued) Procedure Result Reported Site O P: Giardia/Cryptospor Screen Final (continued) 09/15/16- 6 it is recommended that three specimens be [...] not recommended. * ML - MAIN LAB ([facility]) . END OF REPORT * ML=Testing performed at Main Lab DEPARTMENT OF PATHOLOGY, [address] [place] [address] Juliano Kinsey M.D. Director [facility] # [id number] 12 SEE RESULT BELOW Name: LISA CARRASQUILLO : [address]: Lennox Tinoco NP Acct: [id number] Unit: [id number] AGE: 20 Location: [facility] Re05/22/16 SEX: F Status: REG REF SPEC: [id number] TYLER: 05/22/[address]: Lennox Tinoco NP REQ: [id number] RECD: 05/22/16 STATUS: COMP _ SOURCE: URINE SPDESC: ORDERED: Urine Culture COMMENTS: [id number] Urine Source: Random Procedure Result Reported Site Urine Culture Final 05/24/16- 0909 ML Organism 1 ESCHERICHIA COLI [place] Count >100,000 (Many) CFU/ML 1. ESCHERICHIA COLI [...] antibiotic reporting. * ML - MAIN LAB ([facility]) . END OF REPORT * ML=Testing performed at Main Lab DEPARTMENT OF PATHOLOGY, [address] [place] [address] Juliano Kinsey M.D. Director [facility] # [id number] 13 Female urine specimens have been self-validated by [facility] and have been granted conditional assay approval by [facility]. 14 If is still suspected, please repeat test after 48 to 72 hours. This test detects intact HCG only and is indicated for the early detection of . Procedures Date CPT Code Description Status 10/06/2017 35054 I & D Abscess Simple Completed 10/31/2007 04799 Wart Treatment 1-14 warts Global Period 10 Days Completed Encounters Type Date Location Provider CPT E/M Dx Office Visit 10/08/2017 11:00a East Office Smita Martin C.P.NJacobP. 41923 L03.115 Office Visit 10/06/2017 3:30p Main Office Smita Martin C.P.N.P. 47423 L03.116 Office Visit 10/04/2017 4:15p Main Office Smita Martin C.P.N.P. 54463 L03.116 Office Visit 09/09/2017 3:15p East Office Lennox Tinoco C.P.NJacobP 77537 Z00.00 Office Visit 09/07/2017 10:00a East Office Nurses East Office 41080 Z11.1 Office Visit 09/01/2017 10:00a East Office Nurses East Office 27042 Z11.1 Office Visit 09/14/2016 9:15a East Office Lennox Tinoco C.P.N.P 74989 R10.13 Office Visit 08/18/2016 10:15a East Office Nurses East Office 29833 Z11.1 Office Visit 08/07/2016 10:00a Main Office Ken GarnerP.N.P. 32133 Z00.8 Z13.89 Office Visit 05/21/2016 4:30p East Office Lennox Tinoco C.P.N.P 78182 R30.0 Office Visit 12/07/2015 10:30a East Office Kush Pollard M.D. 42005 R59.0 Z23 R59.0 Office Visit 10/19/2015 10:00a Main Office Zachary Schroeder M.D. 87866 B37.3 Office Visit 09/06/2015 8:45a Main Office Luisa Sargent C.P.N.P. 38055 Z00.00 Z13.89 Office Visit 07/26/2015 4:15p Main Office Ken GarnerP.N.P. 55485 R21 Office Visit 03/22/2015 4:00p Main Office Ken GarnerP.N.P. 82324 I95.1 Office Visit 09/13/2014 10:00a East Office Ken DeanP.N.P 68558 V20.2 625.3 Office Visit 09/22/2013 2:15p Main Office Luisa Sargent C.P.N.P. 13923 V20.2 625.3 Office Visit 04/28/2013 9:00a Main Office Ken GarnerP.N.P. 02940 625.3 Office Visit 10/24/2012 2:15p Main Office Ken GarnerP.N.P. 52599 V20.2 Office Visit 07/25/2012 5:00p East Office Zachary Schroeder M.D. 10281 461.9 Office Visit 02/18/2012 4:45p Main Office Zachary Schroeder M.D. 30787 466.0 780.79 Office Visit 02/12/2012 5:00p East Office Zachary Schroeder M.D. 67779 466.0 Office Visit 02/04/2012 4:30p East Office Cody Chisholm III, M.D. 93370 465.9 Office Visit 10/19/2011 9:45a Main Office Ken GarnerP.N.P. 88562 V20.2 959.7 623.8 Office Visit 09/17/2011 11:45a East Office Cody Chisholm III, M.D. 11557 959.7 Office Visit 10/03/2010 10:15a Main Office Ken GarnerP.N.P. 07640 V20.2 626.4 Office Visit 05/30/2010 4:15p East Office Paris Abbott D.O. 01978 461.9 Office Visit 05/19/2010 4:45p Main Office Ken GarnerP.N.P. 22778 487.1 Office Visit 03/24/2010 2:00p Main Office Rk Garner.P.N.P. 36892 705.21 719.46 Office Visit 02/21/2010 8:30a East Office Lennox Tinoco C.P.N.P 00705 461.9 Office Visit 10/01/2009 2:15p Main Office Rk Garner.P.N.P. 12567 V20.2 300.00 Office Visit 09/24/2008 11:00a East Office Yesica Ramirez R.P.A.CJacob 52144 V20.2 625.3 300.00 Office Visit 10/31/2007 10:15a East Office Yesica Ramirez R.P.A.C. 81002 V20.2 300.00 078.10 Office Visit 07/28/2007 1:45p East Office Cody Chisholm III, M.D. 00469 462 Office Visit 05/23/2007 4:30p East Office Yesica Ramirez R.P.A.CJacob 78707 462 Office Visit 03/16/2007 1:00p East Office Zachary Schroeder M.D. 00640 466.0 Office Visit 03/14/2007 10:30a East Office Zachary Schroeder M.D. 09303 466.0 Office Visit 09/02/2006 11:00a East Office Yesica Ramirez R.P.A.C. 21137 V20.2 300.00 Office Visit 02/24/2005 4:15p East Office Kush Pollard M.D. 08706 788.41 Office Visit 12/26/2004 3:45p East Office Yesica Ramirez R.P.A.C. 05876 599.0 V67.59 Office Visit 11/14/2004 4:00p East Office Yesica Ramirez R.P.A.C. 51530 788.1 V67.59 Office Visit 10/30/2004 12:30p East Office Yesica Ramirez R.P.A.C. 92985 V20.2 V05.8 Office Visit 10/01/2003 10:00a East Office Hilton Boss.P.A.C. 00995 V20.2 Office Visit 02/24/2002 9:30a East Office Hilton Boss.P.A.C. 85887 382.9 Office Visit 02/09/2002 10:15a East Office Yesica Ramirez R.P.A.C. 97339 V20.2 382.9 599.0 V67.59 Office Visit 04/20/2001 2:15p East Office Ken GarnerP.N.PJacob 20643 Office Visit 10/29/2000 9:30a East Office Shawna BossPJacobAJacobCJacob 08349 Plan of Care Future Appointment(s):10/18/2017 8:00 am - Ken OcampoP.N.P. at Main [id number]/08/2017 - Ken OcampoP.N.P.L03.115 Cellulitis of right lower limbNew Medication:Bactrim DS 800-160 mgComments:Patient to stop Cephalexin and take Bactrim DS.Continue with warm compress and soaks. Ibuprofen 400mg, 1-2 tab for pain q6-8 hours, prn.Continue to monitor. Call back if worsening or new symptoms develop.Follow up:10 days or PRNGoals:Reduce swelling, promote drainage and healing.
--- OUTSIDE RECORDS SUMMARY | 2017-10-29 10:20 | XMS REPORT ---
:1995 External Reference #:[id number] Author Organization [facility] Address [address] [place] [address] Phone [phone] Care Team Providers Name Role Phone Luisa Sargent Primary Care Physician Unavailable Payers Type Date Identification Numbers Payment Provider Subscriber Commercial Effective: Policy Number: [id number] [facility] // [facility] Network Jayme Sandeep 2014 PayID: [id number] [place] [address] Problems Description No Active Problems Family History Date Family Member(s) Problem(s) Comments Father Hypercholesterolemia genetic related First Sister Asthma First Sister Seasonal Allergies Grandmother GI issues Paternal Grandfather Hypercholesterolemia Onset: (age 70 Years) Paternal Grandfather MD Paternal Grandmother Unremarkable Maternal Grandfather Diabetes Maternal Grandfather MD Maternal Grandmother Hypertension Social History Type Date [...] CPT Code Status Date Vaccine Lot # [id number] Given 03/26/2016 Meningococcal B Recombinant Protein And Outer [id number] Membrane [Bexsero] 76109 Given 12/07/2015 Flu Inj Quadrivalent .5ml Preserve Free [id number] 73085 Given 09/06/2015 Meningococcal A,C,Y,W135 (Menactra) Preservative [id number] Free 02495 Given 09/06/2015 Meningococcal B Recombinant Protein And Outer 958907 Membrane [Bexsero] 99782 Given 06/22/2014 HPV 4 Gardasil 4 [id number] 53343 Given 02/21/2014 HPV 4 Gardasil 4 [id number] 41742 Given 12/20/2013 Flu Inj Quadrivalent .5ml Preserve Free [id number] 80281 Given 12/20/2013 HPV 4 Gardasil 4 [id number] 46303 Given 01/20/2013 Flu Inj Quadrivalent .5ml Preserve Free [id number] 08011 Given 02/04/2012 Flu Vacc Preserv Free Trivalent 3+yrs [id number] 93530 Given 01/28/2011 Flu Vacc Preserv Free Trivalent 3+yrs [id number] 84632 Given 09/24/2008 Varicella (Chicken Pox) Immunization [id number] 01146 Given 09/24/2008 TdaP Immunization Age 7+ [id number] 42249 Given 10/30/2004 MMR Virus Immunization 09243 Given 04/19/2002 DTaP Immunization under age 7 25845 Given 09/13/2001 Poliomyelitis Immunization 72323 Given 07/18/1998 Varicella (Chicken Pox) Immunization 70247 Given 07/18/1998 Hepatitis B Imm Age 0 to 19yr 59675 Given 05/23/1998 DTaP & Hib Immunization 03979 Given 01/04/1998 Poliomyelitis Immunization 65259 Given 01/04/1998 MMR Virus Immunization 42091 Given 08/21/1997 Hib/Hep B Combination Vaccine 99408 Given 08/21/1997 DTaP Immunization under age 7 44086 Given 06/27/1997 Hib Immunization 00924 Given 06/27/1997 Poliomyelitis Immunization 73043 Given 06/27/1997 DTaP Immunization under age 7 23875 Given 04/20/1997 Poliomyelitis Immunization 22122 Given 04/20/1997 DTaP Immunization under age 7 89572 Given 04/20/1997 Hib Vaccine 11490 Given 1995 Hepatitis B Imm Age 0 to 19yr 68074 Refused 10/24/2012 Hepatitis A Vaccine Pediatric/Adolescent 2 Dose Schedule 21058 Refused 10/24/2012 HPV 4 Gardasil 4 [id number] Refused 10/24/2012 Meningococcal A,C,Y,W135 (Menactra) Preservative Free [...] Throat Culture (Overnight) neg per [facility] test finding 05/24/2007 .Throat Culture Overnight [...] 130-159 High: 160-189 Very High: >189 7 [id number] Test Performed by: [address] [address] SEE RESULT BELOW Name: LISA CARRASQUILLO : [address]: Lennox Tinoco CUT OUT PRESS OPERATOR Acct: [id number] Unit: [id number] AGE: 20 Location: [facility] Re09/14/16 SEX: F Status: REG REF SPEC: [id number] TYLER: 09/14/[address]: Lennox Tinoco NP REQ: [id number] RECD: 09/14/16 STATUS: RES _ SOURCE: STOOL SPDESC: ORDERED: Occult Bl, Diag, Stool Culture, Fecal Lactoferr, O P: Faithar/Benton COMMENTS: [id number] Procedure Result Reported Site Stool Culture PENDING [...] Screen PENDING * ML - MAIN LAB ([facility]) . END OF REPORT * ML=Testing performed at Main Lab DEPARTMENT OF PATHOLOGY, [address] [place] [address] Juliano Kinsey M.D. Director [facility] # [id number] 10 SEE RESULT BELOW Name: LISA CARRASQUILLO : [address]: Lennox Tinoco CUT OUT PRESS OPERATOR Acct: [id number] Unit: [id number] AGE: 20 Location: [facility] Re09/14/16 SEX: F Status: REG REF SPEC: [id number] TYLER: 09/14/16-[address]: Lennox Tinoco CUT OUT PRESS OPERATOR REQ: [id number] RECD: 09/14/16 STATUS: COMP _ SOURCE: STOOL SPDESC: ORDERED: Occult Bl, Diag, Stool Culture, Fecal Lactoferr, O P: Giar/Crypt COMMENTS: [id number] Procedure Result Reported Site Stool Culture Final [...] performed at Main Lab DEPARTMENT OF PATHOLOGY, [address] [place] [address] Juliano Kinsey M.D. Director [facility] # [id number] Patient: LISA CARRASQUILLO [id number] (Continued) Specimen: [id number] Collected: 09/14/16 Received: 09/14/16 (Continued) Procedure Result [...] is requested. Contact the Microbiology Department at [phone]. TEST LIMITATIONS: As with all diagnostic procedures, [...] performed at Main Lab DEPARTMENT OF PATHOLOGY, [address] [place] [address] Juliano Kinsey M.D. Director [facility] # [id number] Patient: LISA CARRASQUILLO [id number] (Continued) Specimen: [id number] Collected: 09/14/16 Received: 09/14/16-1618 (Continued) Procedure Result [...] not recommended. * ML - MAIN LAB ([facility]) . END OF REPORT * ML=Testing performed at Main Lab DEPARTMENT OF PATHOLOGY, [address] [place] [address] Juliano Kinsey M.D. Director [facility] # [id number] 11 [id number] 12 SEE RESULT BELOW Name: LISA CARRASQUILLO : [address]: Lennox Tinoco NP Acct: [id number] Unit: [id number] AGE: 20 Location: [facility] Re05/22/16 SEX: F Status: REG REF SPEC: [id number] TYLER: 05/22/[address]: Lennox Tinoco NP REQ: [id number] RECD: 05/22/16 STATUS: COMP _ SOURCE: URINE SPDESC: ORDERED: Urine Culture COMMENTS: [id number] Urine Source: Random Procedure Result Reported Site Urine Culture Final 05/24/16- 0909 ML Organism 1 ESCHERICHIA COLI Hector Count >100,000 (Many) CFU/ML 1. ESCHERICHIA COLI [...] antibiotic reporting. * ML - MAIN LAB ([facility]) . END OF REPORT * ML=Testing performed at Main Lab DEPARTMENT OF PATHOLOGY, [address] [place] [address] Juliano Kinsey M.D. Director [facility] # [id number] 13 Female urine specimens have been self-validated by [facility] and have been granted conditional assay approval by [facility]. 14 If is still suspected, please repeat test after 48 to 72 hours. This test detects intact HCG only and is indicated for the early detection of . Procedures Date CPT Code Description Status 10/06/2017 38119 I & D Abscess Simple Completed 10/31/2007 56759 Wart Treatment 1-14 warts Global Period 10 Days Completed Encounters Type Date Location Provider CPT E/M Dx Office Visit 10/08/2017 11:00a East Office Smita Martin C.P.NJacobP. 18909 L03.115 Office Visit 10/06/2017 3:30p Main Office Smita Martin C.P.N.P. 91779 L03.116 Office Visit 10/04/2017 4:15p Main Office Smita Martin C.P.N.P. 07411 L03.116 Office Visit 09/09/2017 3:15p East Office Lennox Tinoco C.P.NJacobP 62853 Z00.00 Office Visit 09/07/2017 10:00a East Office Nurses East Office 13947 Z11.1 Office Visit 09/01/2017 10:00a East Office Nurses East Office 83598 Z11.1 Office Visit 09/14/2016 9:15a East Office Lennox Tinoco C.P.N.P 13329 R10.13 Office Visit 08/18/2016 10:15a East Office Nurses East Office 50542 Z11.1 Office Visit 08/07/2016 10:00a Main Office Ken GarnerP.N.P. 26944 Z00.8 Z13.89 Office Visit 05/21/2016 4:30p East Office Lennox Tinoco C.P.N.P 71993 R30.0 Office Visit 12/07/2015 10:30a East Office Kush Pollard M.D. 04516 R59.0 Z23 R59.0 Office Visit 10/19/2015 10:00a Main Office Zachary Schroeder M.D. 43580 B37.3 Office Visit 09/06/2015 8:45a Main Office Luisa Sargent C.P.N.P. 51408 Z00.00 Z13.89 Office Visit 07/26/2015 4:15p Main Office Ken GarnerP.N.P. 80772 R21 Office Visit 03/22/2015 4:00p Main Office Ken GarnerP.N.P. 67482 I95.1 Office Visit 09/13/2014 10:00a East Office Ken DeanP.N.P 14102 V20.2 625.3 Office Visit 09/22/2013 2:15p Main Office Luisa Sargent C.P.N.P. 60635 V20.2 625.3 Office Visit 04/28/2013 9:00a Main Office Ken GarnerP.N.P. 95281 625.3 Office Visit 10/24/2012 2:15p Main Office Ken GarnerP.N.P. 46133 V20.2 Office Visit 07/25/2012 5:00p East Office Zachary Schroeder M.D. 30891 461.9 Office Visit 02/18/2012 4:45p Main Office Zachary Schroeder M.D. 46542 466.0 780.79 Office Visit 02/12/2012 5:00p East Office Zachary Schroeder M.D. 11558 466.0 Office Visit 02/04/2012 4:30p East Office Cody Chisholm III, M.D. 93327 465.9 Office Visit 10/19/2011 9:45a Main Office Ken GarnerP.N.P. 33230 V20.2 959.7 623.8 Office Visit 09/17/2011 11:45a East Office Cody Chisholm III, M.D. 20081 959.7 Office Visit 10/03/2010 10:15a Main Office Ken GarnerP.N.P. 59271 V20.2 626.4 Office Visit 05/30/2010 4:15p East Office Paris Abbott D.O. 06907 461.9 Office Visit 05/19/2010 4:45p Main Office Ken GarnerP.N.P. 89031 487.1 Office Visit 03/24/2010 2:00p Main Office Rk Garner.P.N.P. 66475 705.21 719.46 Office Visit 02/21/2010 8:30a East Office Lennox Tinoco C.P.N.P 93304 461.9 Office Visit 10/01/2009 2:15p Main Office Rk Garner.P.N.P. 75582 V20.2 300.00 Office Visit 09/24/2008 11:00a East Office Yesica Ramirez R.P.A.CJacob 72849 V20.2 625.3 300.00 Office Visit 10/31/2007 10:15a East Office Yesica Ramirez R.P.A.C. 54597 V20.2 300.00 078.10 Office Visit 07/28/2007 1:45p East Office Cody Chisholm III, M.D. 91513 462 Office Visit 05/23/2007 4:30p East Office Yesica Ramirez R.P.A.CJacob 26622 462 Office Visit 03/16/2007 1:00p East Office Zachary Schroeder M.D. 89512 466.0 Office Visit 03/14/2007 10:30a East Office Zachary Schroeder M.D. 22623 466.0 Office Visit 09/02/2006 11:00a East Office Yesica Ramirez R.P.A.C. 19931 V20.2 300.00 Office Visit 02/24/2005 4:15p East Office Kush Pollard M.D. 27143 788.41 Office Visit 12/26/2004 3:45p East Office Yesica Ramirez R.P.A.C. 24684 599.0 V67.59 Office Visit 11/14/2004 4:00p East Office Yesica Ramirez R.P.A.C. 66999 788.1 V67.59 Office Visit 10/30/2004 12:30p East Office Yesica Ramirez R.P.A.C. 13997 V20.2 V05.8 Office Visit 10/01/2003 10:00a East Office Hilton Boss.P.A.C. 48263 V20.2 Office Visit 02/24/2002 9:30a East Office Hilton Boss.P.A.C. 57192 382.9 Office Visit 02/09/2002 10:15a East Office Yesica Ramirez R.P.A.C. 01833 V20.2 382.9 599.0 V67.59 Office Visit 04/20/2001 2:15p East Office Ken GarnerP.N.PJacob 25582 Office Visit 10/29/2000 9:30a East Office Shawna BossPJacobAJacobCJacob 07703 Plan of Care Future Appointment(s):10/18/2017 8:00 am - Ken OcampoP.N.P. at Main [id number]/08/2017 - Ken OcampoP.N.P.L03.115 Cellulitis of right lower limbNew Medication:Bactrim DS 800-160 mgComments:Patient to stop Cephalexin and take Bactrim DS.Continue with warm compress and soaks. Ibuprofen 400mg, 1-2 tab for pain q6-8 hours, prn.Continue to monitor. Call back if worsening or new symptoms develop.Follow up:10 days or PRNGoals:Reduce swelling, promote drainage and healing.
--- OUTSIDE RECORDS SUMMARY | 2017-10-29 10:20 | XMS REPORT ---
:1995 External Reference #:[id number] Author Organization [facility] Address [address] [place] [address] [place] [address] Phone [phone] Care Team Providers Name Role Phone Luisa Sargent Primary Care Physician Unavailable Payers Type Date Identification Numbers Payment Provider Subscriber Commercial Effective: Policy Number: [id number] [facility] // [facility] Network Jayme Sandeep 2014 PayID: [id number] [id number] [place] [address] Problems Description No Active Problems Family History Date Family Member(s) Problem(s) Comments Father Hypercholesterolemia genetic related First Sister Asthma First Sister Seasonal Allergies Grandmother GI issues Paternal Grandfather Hypercholesterolemia Onset: (age 70 Years) Paternal Grandfather [place] Paternal Grandmother Unremarkable Maternal Grandfather Diabetes Maternal Grandfather [place] Maternal Grandmother Hypertension Social History Type Date Description Comments Lives With Younger Sister Lives With Mother And Father Smoke-Free Home is smoke-free Pets 1 dog Smoking Patient has never smoked Allergies, Adverse Reactions, Alerts Date Description Reaction Status Severity Comments 03/24/2010 NKDA active Medications Medication Date Status Form Strength Qnty SIG Indications Ordering Provider Cephalexin 10/04/ Hx Tablets 500mg 20tabs 500 mg, L03.116 Smita Mariscal 2018 - take 1 Mario, 10/14/ tablet, C.P.N.P. 2017 po, bid for 10 days. Tri-Sprintec 04/28/ Active Tablets 0.18/0.215 28tabs Take One N94.4 [place] 2013 /0.25 Tablet By Scar, mg-35 mcg Mouth D.O. Every Day Omeprazole 09/11/ Hx Capsules DR 20mg 1 [...] as 461.9 Zachary Z-Callum 2012 - directed Biranivasta 08/03/ Carlos schultz 2012 No Active 07/22/ Hx Unknown Medications 2012 - 2012 Zithromax 02/11/ Hx Tablets 250mg 6tabs z callum 466.0 Zachary 2011 - Shrivasta 02/20/ Carlos schultz 2011 Proair HFA 02/11/ Hx Aerosol 108(90Base 1units 2 puffs 4 466.0 Zachary 2011 - ) mcg/ac hrly as Shrivasta 07/22/ needed Carlos schultz 2012 Prednisone 02/11/ Hx Tablets 20mg 10tabs 1 tab po 466.0 Zachary 2011 - bid pc for Shrivasta 02/20/ 5 day Carlos schultz 2011 Cefdinir 05/30/ Hx Capsules 300mg 20caps 2 po once 461.9 Paris 2010 - daily x Scar, 06/09/ 10d D.O. [...] 2009 - once Sharkness 02/28/ , C.P.N.P 2009 Augmentin 02/21/ Hx Suspension 400-57mg/5 200uni 2 461.9 Lennox 2009 - Rec ML ts teaspoons Sharkness 03/24/ twice , C.P.N.P 2010 daily for 10 days Albuterol 03/17/ Hx Aerosol 90mcg/Dose 2units 2 puffs Zachary Inhalation 2008 - q4h prn Brianivasta 09/24/ Carlos schultz 2008 Spacer Device 03/17/ Hx 1units Use as Zachary 2008 - Directed Shrivasta 03/26/ Carlos schultz 2007 Albuterol 03/14/ Hx Syrup 2mg/5 ML 2Weeks 1 teaspoon 466.0 Zachary 2007 - po q8 hr Shrivasta 03/23/ prn Carlos schultz 2007 Prelone 03/14/ Hx Syrup 15mg/5 ML QS 2 466.0 Zachary 2007 - teaspoon Shrivasta 03/23/ po bid pc Carlos schultz 2007 for 3 days, 2 tspn q am for next 2 days Zithromax 03/14/ Hx Suspension 200mg/5 ML QS 1 / 466.0 Zachary 2007 - teaspoon Shrivasta 03/23/ po q day Carlos schultz 2007 for 5 days Medications Administered in Office Medication Date Status Form Strength Qnty SIG Indications Ordering Provider TB Intradermal Administered Injection Nurses Adama Test 018 Office TB Intradermal Administered Injection Nurses Adama Test 018 Office TB Intradermal Administered Injection Nurses Adama Test 017 Office TB Intradermal Administered Injection Luisa Test 017 Amaya SargentNCelena TB Intradermal Administered Injection Nurses East Test 015 Office TB Noemi Test Administered Injection Zachary Schroeder M.D. Immunizations CPT Code Status Date Vaccine Lot # [id number] Given 03/26/2016 Meningococcal B Recombinant Protein And Outer [id number] Membrane [Bexsero] 54247 Given 12/07/2015 Flu Inj Quadrivalent .5ml Preserve Free [id number] 76322 Given 09/06/2015 Meningococcal A,C,Y,W135 (Menactra) Preservative [id number] Free 75764 Given 09/06/2015 Meningococcal B Recombinant Protein And Outer [id number] Membrane [Bexsero] 87960 Given 06/22/2014 HPV 4 Gardasil 4 [id number] 32880 Given 02/21/2014 HPV 4 Gardasil 4 [id number] 30247 Given 12/20/2013 Flu Inj Quadrivalent .5ml Preserve Free [id number] 11348 Given 12/20/2013 HPV 4 Gardasil 4 [id number] 89437 Given 01/20/2013 Flu Inj Quadrivalent .5ml Preserve Free [id number] 10023 Given 02/04/2012 Flu Vacc Preserv Free Trivalent 3+yrs [id number] 93185 Given 01/28/2011 Flu Vacc Preserv Free Trivalent 3+yrs [id number] 18082 Given 09/24/2008 Varicella (Chicken Pox) Immunization [id number] 29274 Given 09/24/2008 TdaP Immunization Age 7+ [id number] 76809 Given 10/30/2004 MMR Virus Immunization 75641 Given 04/19/2002 DTaP Immunization under age 7 68833 Given 09/13/2001 Poliomyelitis Immunization 06713 Given 07/18/1998 Varicella (Chicken Pox) Immunization 91261 Given 07/18/1998 Hepatitis B Imm Age 0 to 19yr 94293 Given 05/23/1998 DTaP & Hib Immunization 73383 Given 01/04/1998 Poliomyelitis Immunization 94724 Given 01/04/1998 MMR Virus Immunization 28022 Given 08/21/1997 Hib/Hep B Combination Vaccine 43771 Given 08/21/1997 DTaP Immunization under age 7 49623 Given 06/27/1997 Hib Immunization 87251 Given 06/27/1997 Poliomyelitis Immunization 15136 Given 06/27/1997 DTaP Immunization under age 7 86163 Given 04/20/1997 Poliomyelitis Immunization 35404 Given 04/20/1997 DTaP Immunization under age 7 80567 Given 04/20/1997 Hib Vaccine 92904 Given 1996 Hepatitis B Imm Age 0 to 19yr 20054 Refused 10/24/2012 Hepatitis A Vaccine Pediatric/Adolescent 2 Dose Schedule 59988 Refused 10/24/2012 HPV 4 Gardasil 4 [id number] Refused 10/24/2012 Meningococcal A,C,Y,W135 (Menactra) Preservative Free Vital Signs Date Vital Result Comment 10/04/2017 Weight 140.00 lb Weight in kg's [...] Strep NEG Throat Culture (Overnight) neg per shr Laboratory test finding 05/24/2007 .Throat Culture Overnight [...] 130-159 High: 160-189 Very High: >189 7 [id number] Test Performed by: [address] [address] 9 SEE RESULT BELOW Name: LISA CARRASQUILLO : [address]: Lennox Tinoco NP Acct: [id number] Unit: [id number] AGE: 20 Location: [facility] Re09/14/16 SEX: F Status: REG REF SPEC: [id number] TYLER: 09/14/[address]: Lennox Tinoco NP REQ: [id number] RECD: 09/14/167 STATUS: RES _ SOURCE: STOOL SPDESC: ORDERED: Occult Bl, Diag, Stool Culture, Fecal Lactoferr, O P: Giar/Crypt COMMENTS: [id number] Procedure Result Reported Site Stool Culture PENDING [...] Screen PENDING * ML - MAIN LAB (PSC1) . END OF REPORT * ML=Testing performed at Main Lab DEPARTMENT OF PATHOLOGY, [address] [place] [address] Juliano Kinsey M.D. Director [facility] # [id number] 10 SEE RESULT BELOW Name: LISA CARRASQUILLO : [address]: Lennox Tinoco NP Acct: [id number] Unit: [id number] AGE: 20 Location: [facility] Re09/14/16 SEX: F Status: REG REF SPEC: [id number] TYLER: 09/14/16-[address] [facility] [address]: Lennox Tinoco NP REQ: [id number] RECD: 09/14/16 STATUS: COMP _ SOURCE: STOOL SPDESC: ORDERED: Occult Bl, Diag, Stool Culture, Fecal Lactoferr, O P: Ez/Benton COMMENTS: [id number] Procedure Result Reported Site Stool Culture Final [...] are required. Stool Specimen Description Final 09/14/16- 192 ML Stool Color Brown Stool Form Formed Stool Consistency Hard Shiga Toxin 1 2 Final 09/15/16- 1044 ML Organism 1 Negative Shiga Toxin 1 2 CONTINUED ON NEXT PAGE * ML=Testing performed at Main Lab DEPARTMENT OF PATHOLOGY, [address] [place] [address] Juliano Kinsey M.D. Director [facility] # [id number] Patient: CARRASQUILLOLISA Franco [id number] (Continued) Specimen: [id number] Collected: 09/14/16 Received: 09/14/16 (Continued) Procedure Result [...] Negative O P: Giardia/Cryptospor Screen Final 09/15/16- 104 ML Organism 1 Neg Cryptosporidium/Giardia Giardia and cryptosporidium antigen testing performed by enzyme immunoassay. If patient is immunocompromised or has traveled to or is from a developing country, a full ova and parasite exam with microscopic (OPMIC) is recommended. All samples will be held one month in case full ova and parasite testing is requested. Contact the Microbiology Department at [phone]. TEST LIMITATIONS: As with all diagnostic procedures, [...] performed at Main Lab DEPARTMENT OF PATHOLOGY, [address] [place] [address] Juliano Kinsey M.D. Director [facility] # [id number] Patient: LISA CARRASQUILLO [id number] (Continued) Specimen: [id number] Collected: 09/14/16 Received: 09/14/16 (Continued) Procedure Result Reported Site O P: Giardia/Cryptospor Screen Final (continued) 09/15/161045 it is recommended that three specimens be [...] not recommended. * ML - MAIN LAB ([facility]) . END OF REPORT * ML=Testing performed at Main Lab DEPARTMENT OF PATHOLOGY, [address] [place] [address] Julinao Kinsey M.D. Director [facility] # [id number] 11 [id number] 12 SEE RESULT BELOW Name: LISA CARRASQUILLO : [address]: Lennox Tinoco NP Acct: [id number] Unit: [id number] AGE: 20 Location: [facility] Re05/22/16 SEX: F Status: REG REF SPEC: [id number] TYLER: 05/22/16-[address] [facility] [address]: Lennox Tinoco NP REQ: [id number] RECD: 05/22/16 STATUS: COMP _ SOURCE: URINE SPDESC: ORDERED: Urine Culture COMMENTS: [id number] Urine Source: Random Procedure Result Reported Site Urine Culture Final 05/24/16- 0909 ML Organism 1 ESCHERICHIA COLI [place] Count >100,000 (Many) CFU/ML 1. ESCHERICHIA COLI [...] antibiotic reporting. * ML - MAIN LAB ([facility]) . END OF REPORT * ML=Testing performed at Main Lab DEPARTMENT OF PATHOLOGY, [address] [place] [address] Juliano Kinsey M.D. Director [facility] # [id number] 13 Female urine specimens have been self-validated by [facility] and have been granted conditional assay approval by [facility]. 14 If is still suspected, please repeat test after 48 to 72 hours. This test detects intact HCG only and is indicated for the early detection of . Procedures Date CPT Code Description Status 10/31/2007 98086 Wart Treatment 1-14 warts Global Period 10 Days Completed Encounters Type Date Location Provider CPT E/M Dx Office Visit 10/04/2017 4:15p Main Office Ken OcampoP.N.P. 98969 L03.116 Office Visit 09/09/2017 3:15p East Office Rk Dean.P.N.P 67733 Z00.00 Office Visit 09/07/2017 10:00a East Office Nurses East Office 31899 Z11.1 Office Visit 09/01/2017 10:00a East Office Nurses [facility] Office 05628 Z11.1 Office Visit 09/14/2016 9:15a East Office Ken DeanP.N.P 58873 R10.13 Office Visit 08/18/2016 10:15a East Office Nurses East Office 01223 Z11.1 Office Visit 08/07/2016 10:00a Main Office Luisa Sargent C.P.N.P. 49372 Z00.8 Z13.89 Office Visit 05/21/2016 4:30p East Office Rk Dean.P.N.P 70738 R30.0 Office Visit 12/07/2015 10:30a East Office Kush Pollard M.D. 85760 R59.0 Z23 R59.0 Office Visit 10/19/2015 10:00a Main Office Zachary Schroeder M.D. 08029 B37.3 Office Visit 09/06/2015 8:45a Main Office Luisa Sargent C.P.N.P. 10203 Z00.00 Z13.89 Office Visit 07/26/2015 4:15p Main Office Luisa Sargent C.P.N.P. 89070 R21 Office Visit 03/22/2015 4:00p Main Office Luisa Sargent C.P.N.P. 89210 I95.1 Office Visit 09/13/2014 10:00a East Office Ken DeanP.N.P 49285 V20.2 625.3 Office Visit 09/22/2013 2:15p Main Office Luisa Sargent C.P.N.P. 39427 V20.2 625.3 Office Visit 04/28/2013 9:00a Main Office Luisa Sargent C.P.N.P. 15967 625.3 Office Visit 10/24/2012 2:15p Main Office Luisa Sargent C.P.N.P. 69098 V20.2 Office Visit 07/25/2012 5:00p East Office Zachary Schroeder M.D. 60918 461.9 Office Visit 02/18/2012 4:45p Main Office Zachary Schroeder M.D. 61424 466.0 780.79 Office Visit 02/12/2012 5:00p East Office Zachary Schroeder M.D. 89593 466.0 Office Visit 02/04/2012 4:30p East Office Cody Chisholm III, M.D. 58485 465.9 Office Visit 10/19/2011 9:45a Main Office Luisa Sargent C.P.NJacobP. 03438 V20.2 959.7 623.8 Office Visit 09/17/2011 11:45a East Office Cody Chisholm III, M.D. 50668 959.7 Office Visit 10/03/2010 10:15a Main Office Luisa Sargent C.P.N.P. 53767 V20.2 626.4 Office Visit 05/30/2010 4:15p East Office Paris Abbott D.O. 09091 461.9 Office Visit 05/19/2010 4:45p Main Office Luisa Sargent C.P.N.P. 07537 487.1 Office Visit 03/24/2010 2:00p Main Office Luisa Sargent C.P.N.P. 02314 705.21 719.46 Office Visit 02/21/2010 8:30a East Office Lennox Tinoco C.P.N.P 26883 461.9 Office Visit 10/01/2009 2:15p Main Office Abbey Garner 71379 V20.2 300.00 Office Visit 09/24/2008 11:00a East Office Shawna BossP.A.C. 91691 V20.2 625.3 300.00 Office Visit 10/31/2007 10:15a East Office Shawna BossPJacobA.C. 83940 V20.2 300.00 078.10 Office Visit 07/28/2007 1:45p East Office Cody Chisholm III, M.D. 30685 462 Office Visit 05/23/2007 4:30p East Office Shawna BossPJacobAJacobCJacob 29455 462 Office Visit 03/16/2007 1:00p East Office Zachary Schroeder M.D. 00124 466.0 Office Visit 03/14/2007 10:30a East Office Zachary Schroeder M.D. 86716 466.0 Office Visit 09/02/2006 11:00a East Office Shawna BossPJacobA.CJacob 95389 V20.2 300.00 Office Visit 02/24/2005 4:15p East Office Kush Pollard M.D. 92336 788.41 Office Visit 12/26/2004 3:45p East Office Shawna BossP.A.CJacob 02302 599.0 V67.59 Office Visit 11/14/2004 4:00p East Office Hilton Boss.P.A.C. 25486 788.1 V67.59 Office Visit 10/30/2004 12:30p East Office Hilton Boss.P.A.C. 47150 V20.2 V05.8 Office Visit 10/01/2003 10:00a East Office Hilton Boss.P.A.C. 97183 V20.2 Office Visit 02/24/2002 9:30a East Office Shawna BossP.A.C. 70658 382.9 Office Visit 02/09/2002 10:15a East Office Hilton Boss.P.A.C. 21719 V20.2 382.9 599.0 V67.59 Office Visit 04/20/2001 2:15p East Office Ken GarnerP.N.PJacob 37269 Office Visit 10/29/2000 9:30a East Office Daria Boss 89712 Plan of Care 10/04/2017 - Smita Martin C.P.NJacobP.L03.116 Cellulitis of left lower limbNew Medication:Cephalexin 500 mgComments:Patient knows to call if no improvements after 24 hours of which antibiotic may need to be changed.Discussed ibuprofen or tylenol to decrease pain, and warm compress.She will monitor for worsening or new symptoms and call the office if this occurs of which she should then be seen again.Follow up:PRN for worseing or new symptoms and for routine well child checks.Goals:Healing of cellulitis, decrease in symptoms of redness, pain and swelling.
[2017-10-29 10:54] VITALS: BP 105/58
--- NOTE | 2017-10-29 11:54 | UC ---
Respiratory Complaint HPI - HPI Summary HPI Summary: This patient is a 21 year old F presenting to [facility] with a chief complaint of sinus congestion since 1 week ago. Patient reports productive cough for a month with yellow mucus, ear pain, and tooth pain. Patient denies fever, chills, nausea, and vomiting. She has tried Mucinex, Claritin, and a saline nasal spray to no effect. no fever, chills. + dental achiness. no rash. no cp, sob, abd pain. + h.o allergies Patient has not taken any pain medications for pain and is not worried about . Pt's medications reviewed this visit - History of Current Complaint Chief Complaint: UCGeneralIllness Stated Complaint: SINUS CONGESTION Time Seen by Provider: 10/29/17 11:15 Hx Obtained From: Patient Hx Last Menstrual Period: 10/29/17 Onset/Duration: Lasting Weeks - Cold-like symptoms for one month, Still Present , Worse Since - 1 week ago Timing: Constant Pain Intensity: 0 Pain Scale Used: 0-10 Numeric Associated Signs And Symptoms: Positive: Nasal Congestion. 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 EOM intact and full ENT: Hearing grossly normal TM left mild erythema right wnl turbinates inflammed and boggy + PND left max and frontal sinus discomfort with palp mmoist, uvula midline, no exudate, no erythema Neck: Positive: Supple Respiratory: Positive: No respiratory distress, No accessory muscle use + CTA throughout no w/r Cardiovascular: RRR nl s1, s2 no m/r CBT <2 sec abd soft + BS nt/nd no guarding, no distension Musculoskeletal Exam: PELAYO x 4 without difficulty Strength Intact, ROM Intact Neurological: Positive: Alert, + sensation throughout Psychological: Positive: Normal Response To Family Skin: Positive: no rash, no ecchymosis Triage Information Reviewed: Yes Vital Signs: Initial Vital Signs Temp 98.5 F 10/29/17 10:51 Pulse 85 10/29/17 10:51 Resp 18 10/29/17 10:51 BP 105/58 10/29/17 10:51 Pulse Ox 99 10/29/17 10:51 Vital Signs Reviewed: Yes Diagnostic Evaluation - Laboratory O2 Sat by Pulse Oximetry: 99 Respiratory Course/Dx - Course Course Of Treatment: Pt with sinus congesiton, pnd and mild frontal face pain. + cough with secretion. Pt' exam c/w sinusitis. abx. rest. hydrate. secretion precaution. decngestant - Differential Dx/Diagnosis Provider Diagnoses: sinusitis Discharge - Sign-Out/Discharge Documenting (check all that apply): Patient Departure All imaging exams completed and their final reports reviewed: No Studies - Discharge Plan Condition: Stable Disposition: HOME Prescriptions: Azithromycin 500 mg PO DAILY WITH MEAL #7 tablet Fluticasone NASAL SPRAY 50MCG* [Flonase NASAL SPRAY 50MCG*] 2 spray BOTH NARES DAILY #1 btl Patient Education Materials: Rhinosinusitis (ED) Referrals: Luisa Sargent NP [Primary Care Provider] - Additional Instructions: - Stay well hydrated. Drink plenty of non-alcoholic, non-caffinated beverages. - Alternate ibuprofen (Advil, Motrin) 600mg and Tylenol every 3 hours for pain or fever. Take with food. Do NOT take for more than 4-5 days. - These infections are spread by secretions - do NOT share eating or drinking utensils - clean items you share with other people such as cell phones, computer mouse, TV remote, computer tablets,etc. Once you have been antibiotics for 2 days, change your toothbrush and your pillowcase. - humidify the air in the room where you sleep - boil water, run a hot steam shower, vaporizer, cups of water by heat register - okay to take over the counter decongestant and cough medication - use nasal spray as prescribed - contact your doctor or return with questions or concerns - Billing Disposition and Condition Condition: STABLE Disposition: Home - Attestation Statements Document Initiated by Johannaibe: Yes Documenting Scribe: Abisai Mcwilliams Provider For Whom Scribe is Documenting (Include Credential): Aretha Hatfield MD Scribe Attestation: Abisai Cobos, scribed for Aretha Hatfield MD on 10/30/17 at 0833. Scribe Documentation Reviewed: Yes Provider Attestation: The documentation as recorded by the Abisai capone accurately reflects the service I personally performed and the decisions made by me, Aretha Hatfield MD
== END 2017-10-29 12:00 | disposition home or self-care (01) ==
LOC: UCEAST 10:13
DX: J32.9 Chronic sinusitis, unspecified (principal)
CPT/HCPCS: 99202; G0463